=== PATIENT | male | born 1955 | race Caucasian/White ===

== ENCOUNTER 2024-09-05 13:33 | Emergency (ER) | payer MEDICARE, OTHER ==
[~2024-09-05] VITALS: Ht 185.4 cm; Wt 77.1 kg
[2024-09-05 17:01] VITALS: BP 130/80; TEMP 99; O2SAT 98
== END 2024-09-05 17:02 ==
LOC: ER 15:33
DX: S80.822A Blister (nonthermal), left lower leg, initial encounter (principal); I10 Essential (primary) hypertension; E78.5 Hyperlipidemia, unspecified; E11.42 Type 2 diabetes mellitus with diabetic polyneuropathy; E03.9 Hypothyroidism, unspecified; X58.XXXA Exposure to other specified factors, initial encounter; Y93.89 Activity, other specified; Y92.89 Other specified places as the place of occurrence of the external cause; Y99.8 Other external cause status

== ENCOUNTER 2025-04-03 17:51 | Inpatient (IN) | payer MEDICARE, OTHER ==
[~2025-04-03] VITALS: Ht 170.2 cm; Wt 71.3 kg
[2025-04-03] MEDS ORDERED: BACLOFEN (10 MG) 10 MG TABLET ONE (18:53)
[2025-04-03] MEDS ORDERED: KETOROLAC TROMETHAMINE INJ 30 MG/ML VIAL ONE (18:53)
[2025-04-03] MEDS: BACLOFEN (10 MG) 10 MG TABLET PO ONE (19:25)
[2025-04-03] MEDS: KETOROLAC TROMETHAMINE INJ 30 MG/ML VIAL IM ONE (19:25)
[2025-04-03] MEDS ORDERED: CYAN-51 PO (19:33)
[2025-04-03] MEDS ORDERED: GABA300C PO (19:33)
[2025-04-03] MEDS ORDERED: ACET325T53 PO (19:33)
[2025-04-03] MEDS ORDERED: INSU100V3 SQ (19:33)
[2025-04-03] MEDS ORDERED: CLON0.1T PO (19:33)
[2025-04-03] MEDS ORDERED: THIA100T74 PO (19:33)
[2025-04-03] MEDS ORDERED: PYRI100T22 PO (19:33)
[2025-04-03] MEDS ORDERED: SELE200T26 PO (19:33)
[2025-04-03] MEDS ORDERED: NITR0.4T48 SL (19:33)
[2025-04-03] MEDS ORDERED: CHOL200059 PO (19:33)
[2025-04-03] MEDS ORDERED: ACET500C48 PO (19:33)
[2025-04-03] MEDS ORDERED: LEVO50TA8 PO (19:33)
[2025-04-03] MEDS ORDERED: ASPI-1169 PO (19:33)
[2025-04-03] MEDS ORDERED: DICL100G34 TP (19:33)
[2025-04-03] MEDS ORDERED: INSU100I26 SQ (19:33)
[2025-04-03] MEDS ORDERED: MAGN400O6 PO (19:33)
[2025-04-03] MEDS ORDERED: KRIL1CAP18 PO (19:33)
[2025-04-03] MEDS ORDERED: AMLO-213 PO (19:33)
[2025-04-03] MEDS ORDERED: BISA10SU11 RC (19:33)
[2025-04-03] MEDS ORDERED: LIDO1ADH78 TP (19:33)
[2025-04-03] MEDS ORDERED: FURO20TA4 PO (19:33)
[2025-04-03] MEDS ORDERED: LEVE100S PO (19:33)
[2025-04-03] MEDS ORDERED: UBID200C18 PO (19:33)
[2025-04-03] MEDS ORDERED: ATOR40TA PO (19:33)
[2025-04-03] MEDS ORDERED: BRIM5DRO11 EACHEYE (19:33)
[2025-04-03] MEDS ORDERED: LOPE2TAB25 PO (19:33)
[2025-04-03] MEDS ORDERED: SIME80TA15 PO (19:33)
[2025-04-03] MEDS ORDERED: NA P133E RC (19:33)
[2025-04-03] MEDS ORDERED: DOCU100C36 PO (19:33)
[2025-04-03] MEDS ORDERED: DORZ10DR13 LEFTEYE (19:33)
[2025-04-03] MEDS ORDERED: INSU100I28 SQ (19:33)
[2025-04-03] MEDS ORDERED: LORA10TA68 PO (19:33)
[2025-04-03] MEDS ORDERED: EMPA1TAB3 PO (19:33)
[2025-04-03] MEDS ORDERED: FLUT16SP BNOSTRILS (19:33)
[2025-04-03] MEDS ORDERED: LISI20TA30 PO (19:33)
[2025-04-03 19:34] LABS: PLATELET COUNT (AUTO) 112 K/uL (150-450); RED BLOOD CELL COUNT(AUTO) 4.35 MIL/uL (4.5-6.0); RED CELL DISTRIBUTION WIDTH 15.9 % (11.5-15.0); WHITE BLOOD COUNT (AUTO) 4.0 K/uL (4.3-11.0)
[2025-04-03 19:42] LABS: CALCIUM, SERUM 8.6 mg/dL (8.5-10.1); CREATININE 1.3 mg/dL (0.6-1.3); SODIUM SERUM 140.0 mmol/L (136-145); UREA NITROGEN, BLOOD 35.0 mg/dL (7-18)
[2025-04-03] MEDS ORDERED: MAG HYDROX/AL HYDROX/SIMETH 30 ML UDC PO PRN (20:00)
[2025-04-03] MEDS ORDERED: ONDANSETRON HCL/PF 4 MG/2 ML VIAL IVP PRN (20:00)
[2025-04-03] MEDS ORDERED: ACETAMINOPHEN 325 MG TABLET PO PRN ×2 (20:00→20:30)
[2025-04-03] MEDS ORDERED: MAGNESIUM HYDROXIDE 30 ML UDC PO PRN ×2 (20:00→20:30)
[2025-04-03 20:15] LABS: INR 1.03 (0.91-1.10)
[2025-04-03] MEDS ORDERED: BISACODYL SUPP (10 MG) 10 MG/SUPP.RECT SUPP.RECT RC PRN (20:30)
[2025-04-03] MEDS ORDERED: SIMETHICONE 80 MG TAB.CHEW PO PRN (20:30)
[2025-04-03] MEDS ORDERED: DOCUSATE SODIUM 100 MG CAPSULE PO PRN (20:30)
[2025-04-03] MEDS ORDERED: CLONIDINE HCL 0.1 MG TABLET PO PRN (20:30)
[2025-04-03] MEDS ORDERED: DEXTROSE 50%-WATER 50 ML DISP.SYRIN IV PRN (20:30)
[2025-04-03] MEDS ORDERED: NA PHOS,M-B/NA PHOS,DI-BA 1 EA ENEMA RC PRN (20:30)
[2025-04-03] MEDS ORDERED: LORATADINE 10 MG TABLET PO PRN (20:30)
[2025-04-03] MEDS ORDERED: DICLOFENAC TOPICAL 100 GM TUBE TP PRN (20:30)
[2025-04-03] MEDS ORDERED: LOPERAMIDE HCL (2 MG CAP) 2 MG CAPSULE PO PRN (20:30)
[2025-04-03] MEDS ORDERED: NITROGLYCERIN 0.4 MG/TAB BOTTLE SL PRN (20:30)
[2025-04-03] MEDS: ENOXAPARIN SODIUM 40 MG/0.4 ML DISP.SYRIN SQ SCH (20:50)
[2025-04-03] MEDS: ATORVASTATIN 40 MG TABLET PO SCH (21:24)
[2025-04-03] MEDS: GABAPENTIN 300 MG CAPSULE PO SCH (21:24)
[2025-04-03] MEDS: BLOOD SUGAR DIAGNOSTIC 1 EACH STRIP IN SCH (21:41)
[2025-04-03] MEDS: INSULIN REGULAR, HUMAN 100 UNIT/ML 3 ML VIAL SQ PRN (21:41)
[2025-04-04 06:24] LABS: PLATELET COUNT (AUTO) 108 K/uL (150-450); RED BLOOD CELL COUNT(AUTO) 4.44 MIL/uL (4.5-6.0); RED CELL DISTRIBUTION WIDTH 16.1 % (11.5-15.0); WHITE BLOOD COUNT (AUTO) 4.9 K/uL (4.3-11.0)
[2025-04-04 07:00] VITALS: BP 115/69; TEMP 97.5; O2SAT 98
[2025-04-04 07:14] LABS: CALCIUM, SERUM 8.6 mg/dL (8.5-10.1); CREATININE 1.1 mg/dL (0.6-1.3); PHOSPHORUS 4.7 mg/dL (2.5-4.9); SODIUM SERUM 140.0 mmol/L (136-145); UREA NITROGEN, BLOOD 37.0 mg/dL (7-18)
[2025-04-04] MEDS: INSULIN LISPRO/ASPART 100 UNIT/ML CARTRIDGE SQ SCH (07:30)
[2025-04-04 08:00] VITALS: BP 115/69; TEMP 97.5; O2SAT 98
[2025-04-04] MEDS: PANTOPRAZOLE 40 MG TABLET.DR PO SCH (08:20)
[2025-04-04] MEDS: LEVOTHYROXINE SODIUM 50 MCG TABLET PO SCH (08:20)
[2025-04-04] MEDS: THIAMINE HCL 100 MG TABLET PO SCH (08:22)
[2025-04-04] MEDS: ASPIRIN 81 MG TAB.CHEW PO SCH (08:22)
[2025-04-04] MEDS: PYRIDOXINE HCL 50 MG TABLET PO SCH (08:22)
[2025-04-04] MEDS: CYANOCOBALAMIN 500 MCG TABLET PO SCH (08:22)
[2025-04-04] MEDS: LEVETIRACETAM SOL (5 ML) 100 MG/ML UDC PO SCH (08:22)
[2025-04-04] MEDS: CHOLECALCIFEROL 1,000 UNIT TABLET (VIT D3) PO SCH (08:22)
[2025-04-04] MEDS: FUROSEMIDE 20 MG TABLET PO SCH (08:22)
[2025-04-04] MEDS: LISINOPRIL (20MG) 20 MG TABLET PO SCH (08:23)
[2025-04-04] MEDS: AMLODIPINE BESYLATE 10 MG TABLET PO SCH (08:23)
[2025-04-04] MEDS: BRIMONIDINE TARTRATE OPHT SOLN 5 ML BOTTLE EACHEYE SCH (08:27)
[2025-04-04] MEDS: TIMOLOL MAL/DORZOLAM HCL OPHTH 10 ML BOTTLE LEFTEYE SCH (08:28)
[2025-04-04] MEDS ORDERED: [UNRECOGNIZED DRUG - OTHER] PO SCH (09:00)
[2025-04-04] MEDS ORDERED: EMPAGLIFLOZIN PO SCH (09:00)
[2025-04-04] MEDS ORDERED: [UNRECOGNIZED DRUG - OTHER] PO SCH (09:00)
[2025-04-04] MEDS ORDERED: LINAGLIPTIN PO SCH (09:00)
[2025-04-04] MEDS ORDERED: Medication Not On Formulary EA (Krill/Om-3/Dha/Epa/Phospho/Ast (Krill Oil 500 mg Softgel PO SCH (09:00)
[2025-04-04] MEDS: INSULIN GLARGINE, 100 UNIT/ML CARTRIDGE SQ SCH (09:57)
[2025-04-04 16:00] VITALS: BP 111/63; TEMP 97.9; O2SAT 99
[2025-04-04 20:26] VITALS: BP 123/65; TEMP 97.5; O2SAT 99
[2025-04-04 20:32] VITALS: BP 123/65; TEMP 97.5; O2SAT 99
[2025-04-05 06:49] LABS: PLATELET COUNT (AUTO) 111 K/uL (150-450); RED BLOOD CELL COUNT(AUTO) 4.43 MIL/uL (4.5-6.0); RED CELL DISTRIBUTION WIDTH 16.2 % (11.5-15.0); WHITE BLOOD COUNT (AUTO) 4.2 K/uL (4.3-11.0)
[2025-04-05 07:00] VITALS: BP 127/68; TEMP 98.2; O2SAT 98
[2025-04-05 07:09] LABS: ASPARTATE AMINOTRANSFERASE 13.0 U/L (15-37); CALCIUM, SERUM 8.4 mg/dL (8.5-10.1); CREATININE 1.1 mg/dL (0.6-1.3); PHOSPHORUS 4.4 mg/dL (2.5-4.9); SODIUM SERUM 142.0 mmol/L (136-145); TOTAL PROTEIN, SERUM 7.0 g/dL (6.4-8.2); UREA NITROGEN, BLOOD 41.0 mg/dL (7-18)
[2025-04-05 07:13] LABS: CREATINE KINASE, TOTAL 168.0 U/L (39-308)
[2025-04-05] MEDS: COENZYME Q10 PO SCH (08:27)
[2025-04-05] MEDS ORDERED: LIDOCAINE 5% (PATCH) 1 EA PATCH TP PRN (08:30)
[2025-04-05] MEDS: LEVETIRACETAM (250 MG) 250 MG TABLET PO SCH (08:32)
[2025-04-05 10:37] LABS: CREATININE, URINE 50.1 MG/DL (30.0-125.0); URINE SODIUM, RANDOM 32.0 mmol/l (40-220); URINE TOTAL PROTEIN 14.0 mg/dL (0-11.9)
[2025-04-05 10:38] LABS: APPEARANCE,URINE CLEAR (CLEAR); BLOOD, URINE NEGATIVE Ery/uL (NEGATIVE); LEUKOCYTE ESTERASE ,URINE NEGATIVE (NEGATIVE); NITRITE, URINE NEGATIVE (NEGATIVE); UGLUCOSE 2+ mg/dL (NEGATIVE)
[2025-04-05 10:49] LABS: ADD URINE CULTURE NO; SQUAMOUS EPITHELIAL CELL,UR 0-2 /HPF (None Seen)
[2025-04-05 13:05] LABS: EOSINOPHIL,URINE None Seen
[2025-04-05 16:00] VITALS: BP 125/73; TEMP 98.1; O2SAT 99
[2025-04-05 20:18] VITALS: BP 129/70; TEMP 98.2; O2SAT 99
[2025-04-06 08:00] VITALS: BP 128/68; TEMP 98.2; O2SAT 96
[2025-04-06] MEDS: ASPIRIN 81 MG TAB.CHEW PO SCH (11:05)
[2025-04-06] MEDS: AMLODIPINE BESYLATE 10 MG TABLET PO SCH (11:06)
[2025-04-06] MEDS: LEVETIRACETAM (250 MG) 250 MG TABLET PO SCH (11:06)
[2025-04-06] MEDS: FUROSEMIDE 20 MG TABLET PO SCH (11:06)
[2025-04-06 11:07] VITALS: BP 128/68
[2025-04-06 11:07] LABS: PTH, INTACT 17 pg/mL (15-65)
[2025-04-06] MEDS: LISINOPRIL (20MG) 20 MG TABLET PO SCH (11:07)
[2025-04-06] MEDS: CHOLECALCIFEROL 1,000 UNIT TABLET (VIT D3) PO SCH (11:07)
[2025-04-06] MEDS: FLUTICASONE PROPIONATE 16 GM BOTTLE NS PRN (12:02)
[2025-04-11 05:08] LABS: *SPE A/G RATIO 1.3 (0.7-1.7); *SPE ALBUMIN 3.7 g/dL (2.9-4.4); *SPE ALPHA-1-GLOBULIN 0.2 g/dL (0.0-0.4); *SPE ALPHA-2-GLOBULIN 0.6 g/dL (0.4-1.0); *SPE BETA GLOBULIN 0.7 g/dL (0.7-1.3); *SPE GLOBULIN, TOTAL 2.8 g/dL (2.2-3.9); *SPE M-SPIKE Not Observed g/dL (Not Observed); *SPE PROTEIN TOTAL 6.5 g/dL (6.0-8.5); *SPEGAMMA GLOBULIN 1.4 g/dL (0.4-1.8)
== END 2025-04-06 12:30 | DRG 552 ==
LOC: ER 18:03 → MED 19:14
PROVIDERS: ADMIT Nurse Practitioner Family; ATTEND Internal Medicine
DX: M51.360 Other intervertebral disc degeneration, lumbar region with discogenic back pain only (principal); E87.20 Acidosis, unspecified; N17.9 Acute kidney failure, unspecified; M54.9 Dorsalgia, unspecified; I10 Essential (primary) hypertension; M19.90 Unspecified osteoarthritis, unspecified site; E11.9 Type 2 diabetes mellitus without complications; E03.9 Hypothyroidism, unspecified; D64.9 Anemia, unspecified; E78.5 Hyperlipidemia, unspecified; H40.9 Unspecified glaucoma; G89.29 Other chronic pain; M89.8X9 Other specified disorders of bone, unspecified site; G40.909 Epilepsy, unspecified, not intractable, without status epilepticus; N18.9 Chronic kidney disease, unspecified; I12.9 Hypertensive chronic kidney disease with stage 1 through stage 4 chronic kidney disease, or unspecified chronic kidney disease; E83.9 Disorder of mineral metabolism, unspecified; M48.061 Spinal stenosis, lumbar region without neurogenic claudication
CPT/HCPCS: 36415; 72131-TC; 76770-TC; 80048-TC; 80053-TC; 81001; 82550-TC; 82570-TC; 82962-TC; 83735-TC; 83970; 84100-TC; 84155; 84165; 84300-TC; 85025-TC; 85730-TC; 87081-TC; 97110-TC; 97116-TC; 97530-TC; G0378; J1650; J1815; J1885; J1953